=== PATIENT | female | born 1925 | race Caucasian/White ===

== ENCOUNTER 2016-06-29 16:34 | Emergency (ER) | payer OTHER, MEDICARE ==
[~2016-06-29] VITALS: Ht 142.2 cm; Wt 59.0 kg
[~2016-06-29 16:34] MED LIST: ACETAMINOPHEN325 M1 PO; ALLEGRA180 MG PO; AMBEREN; ASPIRIN325 PO; BUSPAR 5 MG TABL5 M1 PO; BUSPIRONE; CALCIUM 500+D1 EAC2 PO; COLACE100 MG PO; COZAAR 50 MG TA50 M1 PO; CYMBALTA30 MG PO; CYMBALTA60 MG PO; DESYREL PO; DILTIAZEM 24HR180 MG PO; ENABLEX15 MG PO; GEODON40 MG PO; GEODON60 MG; GEODON60 MG PO; HYDROXYZINE HCL25 M1 GT; HYDROXYZINE HCL25 M1 PO; KAOPECTATE240 MG PO; KEPPRA250 MG PO; LAMICTAL PO; LAMICTAL XR100 MG PO; LAMICTAL XR200 MG PO; LAMOTRIGINE100 MG PO; LEVOTHROID150 MC1 PO; LISINOPRIL10 MG PO; MELATONIN3 MG PO; MOM; MULTIVITAMINS PO; MULTIVITAMINS1 EAC7 PO; NORCO 5-325 TA1 EACH PO; ORAZINC220 MG PO; OYSTER SHELL C1 EA14 PO; PLAVIX 75 MG TA75 MG PO; PRILOSEC 20 MG20 MG PO; PROTONIX PO; PROTONIX40 M2 PO; REMERON; REMERON15 MG PO; STELAZINE; STELAZINE PO; SYNTHROID75 MCG PO; TOPROL XL50 MG PO; TRIFLUOPERAZINE1 MG PO; VITAMIN E400 UNIT; VITAMINC500 PO; XANAX 0.25 MG0.25 MG PO; ZESTRIL10 MG PO
[2016-06-29 17:11] LABS: ABSOLUTE NEUTROPHILS 2.7 thou/uL (1.4-8.2); EOSINOPHILS 2.4 % (0.0-3.0); HEMATOCRIT 37.8 % (37.0-47.0); LYMPHOCYTES 46.6 % (24.0-44.0); MCH 32.1 pg (26.0-34.0); MCHC 34.3 g/dL (28.0-37.0); MCV 93.6 fL (80.0-100.0); MONOCYTES 7.6 % (1.0-8.0); PLATELET COUNT 260 thou/uL (150-400); POLYS 42.4 % (36.0-66.0); RBC 4.04 mil/uL (4.20-5.00); RDW 12.1 % (10.5-14.5); WBC 6.3 thou/uL (4.0-11.0)
[2016-06-29 17:12] LABS: MANUAL DIFF NO
[2016-06-29 17:29] LABS: CREATININE 0.8 mg/dL (0.6-1.0); POTASSIUM 4.3 mmol/L (3.5-5.1)
== END 2016-06-29 18:27 | disposition home or self-care (01) ==
LOC: ER 16:34
PROVIDERS: Physician Assistant
DX: G40.89 Other seizures (principal); I10 Essential (primary) hypertension; Z90.710 Acquired absence of both cervix and uterus; F20.89 Other schizophrenia; Z98.890 Other specified postprocedural states; Z86.73 Personal history of transient ischemic attack (TIA), and cerebral infarction without residual deficits; Z86.69 Personal history of other diseases of the nervous system and sense organs; Z88.8 Allergy status to other drugs, medicaments and biological substances; Z91.011 Allergy to milk products; Z88.0 Allergy status to penicillin; F10.99 Alcohol use, unspecified with unspecified alcohol-induced disorder

== ENCOUNTER 2016-10-09 20:52 | Inpatient (IN) | payer OTHER, MEDICARE ==
[~2016-10-09] VITALS: Ht 134.6 cm; Wt 64.2 kg
--- NOTE | ~2016-10-09 | HC ---
[facility] [place] [address] CONSULTATION Name: GLENN GUZMAN Room #: 207-P ADM IN M.R.#: [id number] Admission: 10/09/16 Attend Phys: Meliton Freed MD Discharge: Date of : [birth year] Report #: [id number] THIS REPORT FOR: //name// CC: Meliton Palacios REASON FOR CONSULTATION: Troponin elevation at 0.11. HISTORY OF PRESENT ILLNESS: The patient is an 89-year-old woman with history of gait instability and falls. Most of her hospitalizations dating back 10 years relate to gait instability and falls, one associated with left ankle bimalleolar fracture. She has a history of hypertension and schizoaffective disorder. She now presents with recurrent falls. She lives at the [facility] and uses a walker to ambulate. Following a fall she was seen in the Emergency Department and troponin was elevated at 0.11, I was asked to see her in this regard. The patient thinks that her gait and balance problems are the result of a newly started medicine, lamotrigine on September 19. She has had more falls and gait instability since then. She denies chest pain, pressure or ischemic type symptoms. No heart failure symptoms. She denies prior cardiac history. She has a known chronic left bundle-branch block. No history of near syncope or syncope. ALLERGIES: SHE IS ALLERGIC TO ASPIRIN, PENICILLIN, DIAZEPAM. MEDICATIONS: Include diltiazem 180 mg daily, Protonix, melatonin, buspirone 10 mg twice daily, Keppra 250 mg twice daily, lisinopril 10 mg twice daily, mirtazapine and lamotrigine, which is new. PAST MEDICAL AND SURGICAL HISTORY: Medical records have been reviewed and include history of seizure disorder, schizoaffective disorder, frequent falls and gait instability, history of breast cancer with mastectomy and lymph node dissection in 1998, thumb fracture, left thigh malleolar fracture following a nonsyncopal fall, hypertension. SOCIAL HISTORY: She is , lives at the [address]. Nonsmoker, nondrinker. Has a supportive family. FAMILY HISTORY: Unremarkable for premature coronary disease. REVIEW OF SYSTEMS: All systems negative except as that noted above. All systems negative except as that noted above. PHYSICAL EXAMINATION: GENERAL: A pleasant woman with slight facial droop per the records, this is not new. VITAL SIGNS: Blood pressure is 169/88, heart rate of 99 and regular. She is [facility] [address] [place] [address] CONSULTATION Name: GLENN GUZMAN Room #: 207-P [facility]#: [id number] Admission: 10/09/16 Attend Phys: Meliton Freed MD Discharge: Date of : [birth year] Report #: [id number] afebrile. HEENT: There are neither xanthelasma, subcutaneous xanthomata, oral mucosal or digital cyanosis or kyphoscoliosis present. CHEST: Clear to auscultation and percussion. CARDIAC: Regular rate and rhythm with paradoxically split second heart sound. ABDOMEN: Soft and nontender. EXTREMITIES: Without cyanosis, clubbing or edema. Radial pulses are 2+. NEUROLOGIC: She is alert with a nonfocal exam. LABORATORY DATA: Sodium 138, potassium 3.2, creatinine 0.7. Troponin 0.11. White count 10.5, hemoglobin 11, hematocrit 34, platelet count 206. EKG, left bundle-branch block, which is not new, I cannot be sure if this is atrial tachycardia or atrial flutter. IMPRESSION: 1. Frequent falls, nonsyncopal. 2. Left bundle-branch block, chronic. 3. Tiny nondiagnostic troponin elevation. 4. Hypertension. RECOMMENDATIONS: 1. I would recommend a very conservative approach to treating for the possibility of coronary disease in this frail, elderly woman. 2. Increase Cardizem for added blood pressure control. 3. Reassess left ventricular systolic function by echocardiography. 4. Consider a newly started medicine as causing further gait imbalance. I have discussed these issues with Dr. Palacios. Thank you for asking me to participate in her care. <ELECTRONICALLY SIGNED> By: Stephen May MD, FACC 10/11/16 0818 0730 [id number] Stephen May MD, FACC /nt
--- NOTE | ~2016-10-09 | EKG ---
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1925 Requested By: Stephen May Order Number: [id number] MD: Stephen May Measurements Intervals [place] Rate: 106 P: 156 [place]: 175 QRS: -21 QRSD: 136 T: 148 QT: 361 QTc: 480 Interpretive Statements Sinus rhythm with first-degree AV block Left bundle branch block Compared to ECG 03/06/2015 08:36:23 Heart rate has slowed Electronically Signed On 10-10-2016 9:09:37 CDT by Stephen May [email or web address] <ELECTRONICALLY SIGNED> By: Stephen May MD, [facility] [id number] 1 Stephen May MD, [facility] /EPI
--- NOTE | ~2016-10-09 | EKG ---
[address] [place] [address] ELECTROCARDIOGRAM REPORT Name: GLENN GUZMAN Room #: 207-P ADM IN M.R.#: [id number] Admission: 10/09/16 Attend Phys: Meliton Freed MD Discharge: Date of : [birth year] Report #: [id number] THIS REPORT FOR: //name// 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1925 Requested By: Pam Santoyo Order Number: [id number] MD: Stephen May Measurements Intervals Alexis Rate: 119 P: 179 [place]: 82 QRS: -30 QRSD: 137 T: 146 QT: 376 QTc: 530 Interpretive Statements Sinus or ectopic atrial tachycardia Left bundle branch block Baseline wander in lead(s) V1 Compared to ECG 03/06/2015 08:36:23 Heart rate has increased Electronically Signed On 10-10-2016 9:07:25 CDT by Stephen May [email or web address] <ELECTRONICALLY SIGNED> By: Stephen May MD, [facility] 10/10/16 0907 2100 [id number] Stephen May MD, [facility] /EPI
--- NOTE | ~2016-10-09 | 2DMMODE ---
[facility] [address] [place] [address] 2 D/M-MODE ECHOCARDIOGRAM Name: GLENN GUZMAN Room #: 207-P ADM IN M.R.#: [id number] Admission: 10/09/16 Attend Phys: Meliton Freed MD Discharge: Date of : [birth year] Date of Service: 10/10/16 1117 Report #: [id number] THIS REPORT FOR: //name// APPROVED REPORT Study performed: 10/10/2016 08:37:50 EXAM: Comprehensive 2D, Doppler, and color-flow Echocardiogram Patient Location: Bedside Room #: 207 BSA: 1.44 HR: 99 bpm Other Information Study Quality: Fair Indications Elevated Troponin Hypertension/HDD Hx CVA 2D Dimensions RVDd: 38.03 mm LVEF(%): 60.03 (>50%) IVSd: 11.36 (7-11mm) LVOT Diam: 18.81 (18-24mm) LVDd: 30.27 mm PWd: 11.58 (7-11mm) Ascending Ao: 31.14 (22-36mm) LVDs: 20.94 (25-40mm) Aortic Root: 28.34 mm Carrera's LVEF: 60.03 % Volumes Left Atrial Volume (Systole) Single Plane 4CH: 46.82 mL Single Plane 2CH: 103.09 mL LA ESV Index: 61.00 mL/m2 Aortic Valve AoV Peak Antonio.: 2.54 m/s AO Peak Gr.: 8.08 mmHg LVOT Max P.30 mmHg AO Mean Gr.: 16.65 mmHg LVOT Mean P.27 mmHg AO V2 Mean: 1.89 m/s LVOT Max V: 1.31 m/s AO V2 VTI: 43.62 cm LVOT Mean V: 0.84 m/s [place] (VTI): 1.57 cm2 LVOT V1 VTI: 24.70 cm [place] Vmax: 1.43 cm2 [facility] [address] [place] [address] 2 D/M-MODE ECHOCARDIOGRAM Name: GLENN GUZMAN Room #: 207-P [facility] .R.#: [id number] Admission: 10/09/16 Attend Phys: Meliton Freed MD Discharge: Date of : [birth year] Date of Service: 10/10/16 1117 Report #: [id number] SV (LVOT): 68.58 mL Mitral Valve IVRT: 94.58 ms Tricuspid Valve TR Peak Antonio.: 2.87 m/s RAP Estimate: 5.00 mmHg TR Peak Gr.: 32.85 mmHg PA Pressure: 38.00 mmHg Left Ventricle The left ventricle is normal size. There is normal left ventricular wall thickness. The left ventricular systolic function is normal. The left ventricular ejection fraction is within the normal range. LVEF is 55-60%. This study is not technically sufficient to allow evaluation of the LV diastolic function. Right Ventricle The right ventricle is normal size. Right ventricle is not well visualized. Right ventricle is at the upper limits of normal. The right ventricular systolic function is normal. Atria Left atrium is dilated. The right atrium size is normal. Aortic Valve Aortic valve is calcified. Aortic valve leaflets are moderately thickened. No aortic regurgitation is present. There is mild valvular aortic stenosis. Calculated aortic valve area is 1.4 cm2 . Vmax 1.42 m/s Mitral Valve There is mitral annular calcification. Mitral valve leaflets are thickened. Trace mitral regurgitation. No evidence of mitral valve stenosis. Tricuspid Valve The tricuspid valve is normal in structure. There is trace tricuspid regurgitation. The right atrial pressure is estimated at 5 mmHg. There is mild pulmonary hypertension with an estimated PAP of 38 mmHg. Pulmonic Valve The pulmonary valve is normal in structure. There is [place] [address] 2 D/M-MODE ECHOCARDIOGRAM Name: GLENN GUZMAN Room #: 207-[facility] IN ..#: [id number] Admission: 10/09/16 Attend Phys: Meliton Freed MD Discharge: Date of : [birth year]03/[birth year] Date of Service: 10/10/16 1117 Report #: [id number] Great Vessels The aortic root is normal in size. The ascending aorta is normal in size. IVC is normal in size and collapses >50% with inspiration. Pericardium There is no pericardial effusion. <Conclusion> The left ventricle is normal size. LVEF is 55-60%. Left atrium is dilated. Aortic valve is calcified. Aortic valve leaflets are moderately thickened. No aortic regurgitation is present. There is mild valvular aortic stenosis. Calculated aortic valve area is 1.4 cm2 . Vmax 1.42 m/s There is mitral annular calcification. Mitral valve leaflets are thickened. Trace mitral regurgitation. The tricuspid valve is normal in structure. There is trace tricuspid regurgitation. The right atrial pressure is estimated at 5 mmHg. There is mild pulmonary hypertension with an estimated PAP of 38 mmHg. The pulmonary valve is normal in structure. The aortic root is normal in size. <ELECTRONICALLY SIGNED> By: Dwayne Zhao MD 10/10/16 1117 111 111 Dwayne Zhao MD /INF
--- NOTE | ~2016-10-09 | EEG ---
[facility] [place] [address] ELECTROENCEPHALOGRAM Name: GLENN GUZMAN Room #: 207-P ADM IN M.R.#: [id number] Admission: 10/09/16 Attend Phys: Meliton Freed MD Discharge: Date of : [birth year] Report #: [id number] THIS REPORT FOR: //name// CC: Meliton Palacios DATE OF SERVICE: 10/10/2016 This patient's EEG was done by placing the electrodes by standard 10-20 system of electrode placement. Both referential and sequential montages were used for recording. Background activity in this patient's EEG is about 7 Hz and 30 microvolts. This patient went to sleep that is associated with bilateral slowing and vertex sharp waves. Photic stimulation is unremarkable. Throughout the record, no active epileptiform activity was noticed. 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 That is a nonspecific abnormality, which can occur with encephalopathy, effect of psychotropic medication, dementia, etc. No active epileptiform activity was noticed. Thank you very much for this referral. By: 1035 1113 Carlos Hollis MD /nt
[2016-10-09 20:53] VITALS: BP 170/99
[2016-10-09 21:29] LABS: ABSOLUTE NEUTROPHILS 10.6 thou/uL (1.4-8.2); BASOPHILS 0.6 % (0.0-2.0); EOSINOPHILS 0.2 % (0.0-3.0); HEMATOCRIT 38.3 % (37.0-47.0); HEMOGLOBIN 13.2 gm/dL (12.0-15.0); LYMPHOCYTES 12.9 % (24.0-44.0); MANUAL DIFF NO; MCH 31.8 pg (26.0-34.0); MCHC 34.4 g/dL (28.0-37.0); MCV 92.5 fL (80.0-100.0); MONOCYTES 6.7 % (1.0-8.0); PLATELET COUNT 231 thou/uL (150-400); POLYS 79.6 % (36.0-66.0); RBC 4.15 mil/uL (4.20-5.00); WBC 13.3 thou/uL (4.0-11.0)
[2016-10-09 21:34] LABS: CALCIUM 9.6 mg/dL (8.5-10.1); CREATININE 0.8 mg/dL (0.6-1.0); POTASSIUM 3.4 mmol/L (3.5-5.1)
[2016-10-09 21:43] LABS: TROPONIN-I 0.11 ng/mL (<0.04-0.07)
[2016-10-09 22:12] LABS: URINE BILIRUBIN NEGATIVE (Negative); URINE BLOOD 2+ (Negative); URINE COLOR YELLOW; URINE GLUCOSE-RANDOM* NEGATIVE (Negative); URINE KETONES 1+ (Negative); URINE NITRITE NEGATIVE (Negative); URINE PROTEIN (DIPSTICK) TRACE (Negative); URINE SPECIFIC GRAVITY 1.015 (1.003-1.035); URINE UROBILINOGEN 0.2 E.U./dl (0.2-1.0)
[2016-10-09 22:25] LABS: SQUAMOUS 0-3 Few /LPF (0-3)
[2016-10-09 22:26] LABS: CASTS None Seen /LPF (None Seen); URINE RBC 3-10 Few /HPF (0-2)
[2016-10-09 22:27] LABS: BACTERIA None Seen /HPF (None Seen); CRYSTALS None Seen /LPF (None Seen); URINE WBC 0-5 Rare /HPF (0-5)
[2016-10-09 22:30] VITALS: BP 170/99
[2016-10-09 23:20] VITALS: BP 156/87
[2016-10-09] MEDS ORDERED: LAMICTAL100 MG PO (23:37)
[2016-10-09 23:45] VITALS: BP 169/88
[2016-10-10 03:00] LABS: HEMATOCRIT 34.2 % (37.0-47.0); HEMOGLOBIN 11.8 gm/dL (12.0-15.0); MCH 32.2 pg (26.0-34.0); MCHC 34.4 g/dL (28.0-37.0); MCV 93.6 fL (80.0-100.0); RBC 3.65 mil/uL (4.20-5.00); RDW 11.7 % (10.5-14.5); WBC 10.5 thou/uL (4.0-11.0)
[2016-10-10 03:04] VITALS: BP 113/67
[2016-10-10 03:17] LABS: CALCIUM 8.6 mg/dL (8.5-10.1); CREATININE 0.7 mg/dL (0.6-1.0); POTASSIUM 3.2 mmol/L (3.5-5.1); TROPONIN-I 0.11 ng/mL (<0.04-0.07)
[2016-10-10 07:55] VITALS: BP 154/92
[2016-10-10 11:45] VITALS: BP 142/86
[2016-10-10 16:00] VITALS: BP 118/75
[2016-10-10 19:46] VITALS: BP 145/75
[2016-10-11 03:47] VITALS: BP 150/97
[2016-10-11 04:13] LABS: HEMATOCRIT 34.2 % (37.0-47.0); HEMOGLOBIN 11.7 gm/dL (12.0-15.0); MCHC 34.1 g/dL (28.0-37.0); MCV 93.8 fL (80.0-100.0); RBC 3.65 mil/uL (4.20-5.00); RDW 12.1 % (10.5-14.5)
[2016-10-11 04:21] LABS: CALCIUM 8.4 mg/dL (8.5-10.1); CREATININE 0.7 mg/dL (0.6-1.0); POTASSIUM 3.8 mmol/L (3.5-5.1)
[2016-10-11 07:30] VITALS: BP 177/88
[2016-10-11] MEDS ORDERED: REQUIP 0.25 M0.25 MG PO (10:26)
[2016-10-11 10:58] VITALS: BP 177/88
[2016-10-11 11:00] VITALS: BP 177/88
[2016-10-11 12:15] VITALS: BP 136/79
== END 2016-10-11 14:16 | disposition home health service (06) | DRG 57 ==
LOC: ER 20:52 → 2N 22:08 → EROBS 22:08 → 2N 23:08
PROVIDERS: Emergency Medicine; Hospitalist; Nurse Practitioner Family
DX: G20 Parkinson's disease (principal); I24.9 Acute ischemic heart disease, unspecified; I44.7 Left bundle-branch block, unspecified; F25.9 Schizoaffective disorder, unspecified; G40.909 Epilepsy, unspecified, not intractable, without status epilepticus; I10 Essential (primary) hypertension; R29.6 Repeated falls; T50.995A Adverse effect of other drugs, medicaments and biological substances, initial encounter; D72.829 Elevated white blood cell count, unspecified; E03.9 Hypothyroidism, unspecified; W18.30XA Fall on same level, unspecified, initial encounter; Z90.710 Acquired absence of both cervix and uterus; Z90.49 Acquired absence of other specified parts of digestive tract; Z91.011 Allergy to milk products; Z86.73 Personal history of transient ischemic attack (TIA), and cerebral infarction without residual deficits; Z85.3 Personal history of malignant neoplasm of breast; Z87.81 Personal history of (healed) traumatic fracture; Z88.8 Allergy status to other drugs, medicaments and biological substances; Z88.0 Allergy status to penicillin; Z88.6 Allergy status to analgesic agent; Y93.89 Activity, other specified; Y92.89 Other specified places as the place of occurrence of the external cause; Y99.8 Other external cause status
CPT/HCPCS: 10081